=== PATIENT | female | born 2000 | race Caucasian/White ===

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

== ENCOUNTER 2022-01-12 11:32 | Outpatient (CLI) | payer OTHER ==
[~2022-01-12] VITALS: Ht 172.7 cm; Wt 65.8 kg
[2022-01-12 12:57] VITALS: BP 112/65; PULSE 106; TEMP 99.9
--- NOTE | 2022-01-12 14:30 | NUR ---
IV fluids and abx dose completed. Pt tolerated both without issue. IV DC'd with catheter intact. Site wrapped with coban. Pt escorted out to waiting to meet her mother who has been waiting for her. Gait steady.
== END 2022-01-12 14:52 | disposition home or self-care (01) ==
LOC: EUO 11:32
DX: J35.01 Chronic tonsillitis (principal)
CPT/HCPCS: J0295; J7030

== ENCOUNTER → 2022-10-09 | Outpatient (CLI) | payer OTHER | LOC: COL.RAD 07:03 | DX: K52.9 Noninfective gastroenteritis and colitis, unspecified (principal) ==

== ENCOUNTER 2024-08-18 23:07 | Emergency (ER) | payer BC ==
[~2024-08-18] VITALS: Ht 172.7 cm; Wt 70.5 kg
[2024-08-18 23:20] VITALS: TEMP 98.2
[2024-08-19] MEDS ORDERED: Ondansetron 4 MG/2 ML VIAL IV ONE (00:15)
[2024-08-19] MEDS ORDERED: NS 1,000 ML IV ONE (00:15)
[2024-08-19 00:38] LABS: COLLECTION METHOD CLEAN CATCH
[2024-08-19] MEDS ORDERED: Ketorolac 30 MG/ML VIAL IV ONE (00:45)
[2024-08-19 00:49] LABS: BASO % 0.4 % (0.0-2.0); EOS # 0.7 K/mm3 (0.0-0.7); EOS % 6.3 % (0.0-4.0); GRAN # 6.5 K/mm3 (1.4-6.5); GRAN % 57.4 % (42.2-75.2); HEMATOCRIT 37.4 % (37.0-47.0); HEMOGLOBIN 12.5 g/dl (12.5-16.0); LYMPH # 3.5 K/mm3 (1.2-3.4); LYMPH % 30.4 % (20.0-51.0); MEAN CELL VOLUME 93 fl (80.0-100.0); MEAN CORPUSCULAR HEMOGLOBIN 31 pg (27-31); MEAN CORPUSCULAR HGB CONC 33 g/dl (33.0-37.0); MEAN PLATELET VOLUME 10.9 fl (7.4-10.4); MONO # 0.6 K/mm3 (0.1-0.6); MONO % 5.1 % (1.7-9.3); PLATELET COUNT 227 K/mm3 (130-400); RED BLOOD COUNT 4.04 M/mm3 (4.10-5.30); REDCELL DISTRIBUTION WIDTH-CV 12.3 % (11.5-14.5)
[2024-08-19 00:52] LABS: PH 5.5 (5.0-8.5); URINE APPEARANCE CLOUDY (CLEAR/HAZY); URINE BLOOD NEGATIVE (NEGATIVE); URINE COLOR YELLOW (YELLOW); URINE GLUCOSE NEGATIVE (NEGATIVE); URINE KETONE TRACE (NEGATIVE); URINE NITRATE NEGATIVE (NEGATIVE); URINE PROTEIN(semi-quant) NEGATIVE (NEGATIVE); URINE UROBILINOGEN 0.2 E.U/dL (0.2-1.0)
[2024-08-19] MEDS ORDERED: Morphine 4 MG/ML VIAL IV ONE (01:00)
[2024-08-19 01:09] LABS: ALBUMIN 3.5 g/dL (3.5-5.0); C-REACTIVE PROTEIN 0.11 mg/dL (0.00-0.50); CALCIUM 9.1 mg/dL (8.4-10.2); CREATININE, serum 0.84 mg/dL (0.57-1.11); POTASSIUM 3.8 mEq/L (3.5-4.5); TOTAL PROTEIN 6.2 g/dl (6.2-8.1)
[2024-08-19 01:12] LABS: MUCOUS PRESENT (NOT PRESENT); SQUAMOUS EPITHELIAL 20-50 /hpf (0-10); URINE BACTERIA MODERATE /hpf (NONE SEEN); URINE RBC NONE SEEN /hpf (0-2)
[2024-08-19] MEDS ORDERED: Iohexol 300 - 100 ML VIAL IV ONE (01:27)
[2024-08-19] MEDS ORDERED: NS 50 ML IV ONE (01:28)
[2024-08-19] MEDS ORDERED: CIPRO 500MG TA500 MG PO (02:28)
[2024-08-19] MEDS ORDERED: cefTRIAXone 1 G in Water For Injection,Sterile 10 ML IV ONE (02:30)
[2024-08-19] MEDS ORDERED: Ciprofloxacin 500 MG TAB PO ONE (02:30)
[2024-08-19 02:40] VITALS: BP 112/75; PULSE 61
== END 2024-08-19 02:40 | disposition home or self-care (01) ==
LOC: COL.ER 23:07
PROVIDERS: Emergency Medicine; Nurse Practitioner Primary Care
DX: N39.0 Urinary tract infection, site not specified (principal)
CPT/HCPCS: J1885; J2270; J2405; J7030; Q9967

== ENCOUNTER 2024-08-21 21:42 | Emergency (ER) | payer BC ==
[~2024-08-21] VITALS: Ht 170.2 cm; Wt 70.5 kg
[~2024-08-21 21:42] MED LIST changes: +CIPRO 500MG TA500 MG PO
[2024-08-21 21:59] VITALS: TEMP 97.4
[2024-08-21] MEDS ORDERED: NS 1,000 ML IV ONE (23:15)
[2024-08-21] MEDS ORDERED: Ketorolac 15 MG/ML VIAL IV ONE (23:15)
[2024-08-21] MEDS ORDERED: Ondansetron 4 MG/2 ML VIAL IV ONE (23:15)
[2024-08-21 23:25] LABS: COLLECTION METHOD CLEAN CATCH
[2024-08-21 23:29] LABS: BASO # 0.1 K/mm3 (0.0-0.2); BASO % 0.7 % (0.0-2.0); EOS # 0.7 K/mm3 (0.0-0.7); EOS % 7.7 % (0.0-4.0); GRAN # 4.3 K/mm3 (1.4-6.5); GRAN % 47.9 % (42.2-75.2); HEMATOCRIT 38.3 % (37.0-47.0); HEMOGLOBIN 12.8 g/dl (12.5-16.0); LYMPH # 3.3 K/mm3 (1.2-3.4); LYMPH % 37.1 % (20.0-51.0); MEAN CELL VOLUME 94 fl (80.0-100.0); MEAN CORPUSCULAR HEMOGLOBIN 31 pg (27-31); MEAN CORPUSCULAR HGB CONC 33 g/dl (33.0-37.0); MONO # 0.6 K/mm3 (0.1-0.6); MONO % 6.4 % (1.7-9.3); PLATELET COUNT 228 K/mm3 (130-400); RED BLOOD COUNT 4.08 M/mm3 (4.10-5.30); REDCELL DISTRIBUTION WIDTH-CV 12.4 % (11.5-14.5)
[2024-08-21 23:32] LABS: PH 5.5 (5.0-8.5); URINE APPEARANCE CLEAR (CLEAR/HAZY); URINE BLOOD NEGATIVE (NEGATIVE); URINE COLOR ORANGE (YELLOW); URINE GLUCOSE NEGATIVE (NEGATIVE); URINE KETONE NEGATIVE (NEGATIVE); URINE PROTEIN(semi-quant) NEGATIVE (NEGATIVE)
[2024-08-21 23:34] LABS: URINE NITRATE POSITIVE (NEGATIVE)
[2024-08-22] MEDS ORDERED: Morphine 4 MG/ML VIAL IV ONE ×2 (00:45→02:30)
[2024-08-22 01:14] LABS: ALBUMIN 3.2 g/dL (3.5-5.0); BILIRUBIN,TOTAL 0.6 mg/dL (0.2-1.2); CALCIUM 8.2 mg/dL (8.4-10.2); CREATININE, serum 0.94 mg/dL (0.57-1.11); POTASSIUM 4.1 mEq/L (3.5-4.5); TOTAL PROTEIN 5.5 g/dl (6.2-8.1)
[2024-08-22] MEDS ORDERED: Iohexol 300 - 100 ML VIAL IV ONE (01:14)
[2024-08-22] MEDS ORDERED: NS 50 ML IV SCH (01:14)
[2024-08-22] MEDS ORDERED: BENTYL 10MG10 MG/CAP PO (02:59)
[2024-08-22 03:20] VITALS: BP 113/70; PULSE 64
== END 2024-08-22 03:21 | disposition home or self-care (01) ==
LOC: COL.ER 21:42
PROVIDERS: Emergency Medicine
DX: K52.9 Noninfective gastroenteritis and colitis, unspecified (principal); N83.01 Follicular cyst of right ovary
CPT/HCPCS: J1885; J2270; J2405; J7030; Q9967

== ENCOUNTER → 2024-09-01 | Outpatient (CLI) | payer BC ==
[~2024-09-01] MED LIST changes: +BENTYL 10MG10 MG/CAP PO
== END ==
LOC: COL.RAD 15:18
DX: N83.00 Follicular cyst of ovary, unspecified side (principal)